=== PATIENT | female | born 1935 | race Caucasian/White ===

== ENCOUNTER 2020-08-14 10:40 | Inpatient (IN) ==
[2020-08-16] MEDS: DICLOFENAC EPOLAMINE TP SCH ×2 (01:41→11:52)
[2020-08-16 05:08] LABS: Basophils % 0.4 %; Eosinophils # 0.3 K/mcL (0.0-0.6); Eosinophils % 2.8 %; Hematocrit 34.7 % (35.3-44.9); Hemoglobin 11.5 g/dL (11.5-15.4); Immature Granulocytes % 0.6 % (0-4); Lymphocytes % 21.8 %; Mean Corpuscular HGB Conc 33.1 g/dL (31.6-35.5); Mean Corpuscular Volume 90.6 fL (83.0-100.0); Mean Platelet Volume 8.6 fL (9.4-12.4); Monocytes # 0.8 K/mcL (0.0-1.3); Monocytes % 8.5 %; Neutrophils # 5.9 K/mcL (1.6-8.9); Platelet Count 317 K/mcL (140-400); Red Blood Count 3.83 M/mcL (3.82-4.97); Red Cell Distribution Width 13.6 % (11.5-14.5); Segmented Neutrophils % 65.9 %; White Blood Count 8.9 K/mcL (4.3-11.1)
[2020-08-16 05:22] LABS: BUN/Creatinine Ratio 28 (6-26); Blood Urea Nitrogen 18 mg/dL (8-23); Calcium 8.6 mg/dL (8.6-10.3); Carbon Dioxide 28 mEq/L (23-29); Chloride 99 mEq/L (98-107); Glucose 117 mg/dL (70-105); Osmolality,Calculated 281 (280-300); Potassium 3.7 mEq/L (3.5-5.1); Sodium 134 mEq/L (136-145); eGFR For African Americans > 60 (> 60); eGFR For Non-African Americans > 60 (> 60)
[2020-08-16] MEDS: Cholecalciferol (D-3) 1,000 UNIT (25MCG) TABLET PO SCH (08:06)
[2020-08-16] MEDS: Aspirin Enteric Coated 81 MG Tablet PO SCH (08:06)
[2020-08-16] MEDS: hydroCHLOROthiazide 25 MG TABLET PO SCH (08:07)
[2020-08-16] MEDS: Sennosides/Docusate Sodium TABLET PO SCH ×2 (08:07→20:57)
[2020-08-16] MEDS: amLODIPine 5 MG TABLET PO SCH (08:07)
[2020-08-16] MEDS: *HR* Enoxaparin 40 MG/0.4 ML SYRINGE SQ SCH (08:08)
[2020-08-17] MEDS: DICLOFENAC EPOLAMINE TP SCH ×3 (01:26→19:51)
[2020-08-17] MEDS: amLODIPine 5 MG TABLET PO SCH (08:02)
[2020-08-17] MEDS: Cholecalciferol (D-3) 1,000 UNIT (25MCG) TABLET PO SCH (08:02)
[2020-08-17] MEDS: Sennosides/Docusate Sodium TABLET PO SCH ×2 (08:02→19:54)
[2020-08-17] MEDS: Aspirin Enteric Coated 81 MG Tablet PO SCH (08:03)
[2020-08-17] MEDS: hydroCHLOROthiazide 25 MG TABLET PO SCH (08:03)
[2020-08-17] MEDS: *HR* Enoxaparin 40 MG/0.4 ML SYRINGE SQ SCH (09:46)
[2020-08-18] MEDS: Cholecalciferol (D-3) 1,000 UNIT (25MCG) TABLET PO SCH (07:21)
[2020-08-18] MEDS: amLODIPine 5 MG TABLET PO SCH (07:21)
[2020-08-18] MEDS: Aspirin Enteric Coated 81 MG Tablet PO SCH (07:21)
[2020-08-18] MEDS: hydroCHLOROthiazide 25 MG TABLET PO SCH (07:22)
[2020-08-18] MEDS: Sennosides/Docusate Sodium TABLET PO SCH ×2 (07:24→20:08)
[2020-08-18] MEDS: *HR* Enoxaparin 40 MG/0.4 ML SYRINGE SQ SCH (07:24)
[2020-08-18] MEDS: DICLOFENAC EPOLAMINE TP SCH ×2 (12:26→20:09)
[2020-08-18] MEDS: *HR* HYDROcodone/Acet 5/325 mg TABLET PO PRN ×3 (12:27→20:09)
[2020-08-18] MEDS: tiZANidine 4 MG TABLET PO PRN ×2 (15:13→20:10)
[2020-08-19] MEDS: tiZANidine 4 MG TABLET PO PRN ×2 (06:23→21:21)
[2020-08-19] MEDS: *HR* HYDROcodone/Acet 5/325 mg TABLET PO PRN ×2 (06:23→21:21)
[2020-08-19] MEDS: Sennosides/Docusate Sodium TABLET PO SCH ×2 (09:43→21:20)
[2020-08-19] MEDS: amLODIPine 5 MG TABLET PO SCH (09:43)
[2020-08-19] MEDS: Cholecalciferol (D-3) 1,000 UNIT (25MCG) TABLET PO SCH (09:43)
[2020-08-19] MEDS: Aspirin Enteric Coated 81 MG Tablet PO SCH (09:44)
[2020-08-19] MEDS: *HR* Enoxaparin 40 MG/0.4 ML SYRINGE SQ SCH (09:45)
[2020-08-19] MEDS: DICLOFENAC EPOLAMINE TP SCH ×2 (14:11→21:22)
[2020-08-20] MEDS: tiZANidine 4 MG TABLET PO PRN ×2 (05:51→20:48)
[2020-08-20] MEDS: *HR* HYDROcodone/Acet 5/325 mg TABLET PO PRN ×3 (05:52→20:49)
[2020-08-20] MEDS: Cholecalciferol (D-3) 1,000 UNIT (25MCG) TABLET PO SCH (08:50)
[2020-08-20] MEDS: Sennosides/Docusate Sodium TABLET PO SCH ×2 (08:50→20:48)
[2020-08-20] MEDS: Aspirin Enteric Coated 81 MG Tablet PO SCH (08:51)
[2020-08-20] MEDS: amLODIPine 5 MG TABLET PO SCH (08:51)
[2020-08-20] MEDS: *HR* Enoxaparin 40 MG/0.4 ML SYRINGE SQ SCH (08:52)
[2020-08-20] MEDS: DICLOFENAC EPOLAMINE TP SCH ×2 (08:53→20:51)
[2020-08-21] MEDS: tiZANidine 4 MG TABLET PO PRN ×2 (05:08→20:41)
[2020-08-21] MEDS: *HR* HYDROcodone/Acet 5/325 mg TABLET PO PRN ×3 (05:08→20:40)
[2020-08-21] MEDS: Aspirin Enteric Coated 81 MG Tablet PO SCH (09:07)
[2020-08-21] MEDS: Cholecalciferol (D-3) 1,000 UNIT (25MCG) TABLET PO SCH (09:08)
[2020-08-21] MEDS: Sennosides/Docusate Sodium TABLET PO SCH ×2 (09:08→20:41)
[2020-08-21] MEDS: *HR* Enoxaparin 40 MG/0.4 ML SYRINGE SQ SCH (09:08)
[2020-08-21] MEDS: amLODIPine 5 MG TABLET PO SCH (09:08)
[2020-08-21] MEDS: DICLOFENAC EPOLAMINE TP SCH ×2 (09:09→22:19)
[2020-08-21] MEDS: polyethylene glycoL 3350 17 GM POWD.PACK PO PRN (16:03)
[2020-08-22] MEDS: Cholecalciferol (D-3) 1,000 UNIT (25MCG) TABLET PO SCH (09:01)
[2020-08-22] MEDS: *HR* Enoxaparin 40 MG/0.4 ML SYRINGE SQ SCH (09:01)
[2020-08-22] MEDS: Sennosides/Docusate Sodium TABLET PO SCH ×2 (09:02→21:04)
[2020-08-22] MEDS: Aspirin Enteric Coated 81 MG Tablet PO SCH (09:02)
[2020-08-22] MEDS: amLODIPine 5 MG TABLET PO SCH (09:02)
[2020-08-22] MEDS: *HR* HYDROcodone/Acet 5/325 mg TABLET PO PRN ×2 (09:02→23:55)
[2020-08-22] MEDS: DICLOFENAC EPOLAMINE TP SCH (10:31)
[2020-08-22] MEDS: tiZANidine 4 MG TABLET PO PRN (23:56)
[2020-08-23] MEDS: *HR* HYDROcodone/Acet 5/325 mg TABLET PO PRN ×2 (08:26→14:39)
[2020-08-23] MEDS: amLODIPine 5 MG TABLET PO SCH (08:26)
[2020-08-23] MEDS: Cholecalciferol (D-3) 1,000 UNIT (25MCG) TABLET PO SCH (08:27)
[2020-08-23] MEDS: Sennosides/Docusate Sodium TABLET PO SCH ×2 (08:27→19:44)
[2020-08-23] MEDS: Aspirin Enteric Coated 81 MG Tablet PO SCH (08:27)
[2020-08-23] MEDS: *HR* Enoxaparin 40 MG/0.4 ML SYRINGE SQ SCH (08:28)
[2020-08-24] MEDS: *HR* HYDROcodone/Acet 5/325 mg TABLET PO PRN (04:26)
[2020-08-24 04:34] LABS: Hemoglobin 10.7 g/dL (11.5-15.4); Mean Corpuscular HGB Conc 32.4 g/dL (31.6-35.5); Mean Corpuscular Hemoglobin 29.9 pg (28.0-33.3); Mean Corpuscular Volume 92.2 fL (83.0-100.0); Mean Platelet Volume 8.6 fL (9.4-12.4); Platelet Count 343 K/mcL (140-400); Red Blood Count 3.58 M/mcL (3.82-4.97); Red Cell Distribution Width 13.9 % (11.5-14.5); White Blood Count 8.5 K/mcL (4.3-11.1)
[2020-08-24 04:52] LABS: Alanine Aminotransferase 13 Units/L (7-52); Albumin 3.5 g/dL (3.5-5.7); Albumin/Globulin Ratio 1.3 (1.1-2.2); Alkaline Phosphatase 152 Units/L (34-104); Aspartate Amino Transferase 13 Units/L (13-39); BUN/Creatinine Ratio 26 (6-26); Bilirubin,Total 0.4 mg/dL (0.3-1.0); Blood Urea Nitrogen 16 mg/dL (8-23); Calcium 8.9 mg/dL (8.6-10.3); Carbon Dioxide 31 mEq/L (23-29); Chloride 99 mEq/L (98-107); Globulin 2.8 g/dL (2.4-3.5); Glucose 111 mg/dL (70-105); Magnesium 1.9 mg/dL (1.6-2.6); Osmolality,Calculated 284 (280-300); Potassium 4.4 mEq/L (3.5-5.1); Sodium 136 mEq/L (136-145); Total Protein 6.3 g/dL (6.4-8.9); eGFR For African Americans > 60 (> 60); eGFR For Non-African Americans > 60 (> 60)
[2020-08-24] MEDS: Cholecalciferol (D-3) 1,000 UNIT (25MCG) TABLET PO SCH (07:40)
[2020-08-24] MEDS: Aspirin Enteric Coated 81 MG Tablet PO SCH (07:40)
[2020-08-24] MEDS: tiZANidine 4 MG TABLET PO PRN (07:40)
[2020-08-24] MEDS: Sennosides/Docusate Sodium TABLET PO SCH ×2 (07:40→16:56)
[2020-08-24] MEDS: polyethylene glycoL 3350 17 GM POWD.PACK PO PRN (07:41)
[2020-08-24] MEDS: *HR* Enoxaparin 40 MG/0.4 ML SYRINGE SQ SCH (07:41)
[2020-08-24] MEDS: amLODIPine 5 MG TABLET PO SCH (07:41)
[2020-08-24] MEDS ORDERED: 0.9 % Sodium Chloride 1,000 ML IVC ONE (09:44)
[2020-08-24] MEDS ORDERED: 0.9 % Sodium Chloride 1,000 ML IVC SCH (11:15)
[2020-08-24 21:08] LABS: Bilirubin,Urine Negative (Negative); Blood,Urine Trace-intact (Negative); Clarity,Urine Slightly Cloudy (Clear); Glucose,Urine (UA) Normal (Normal); Ketones,Urine Negative (Negative); Leukocyte Esterase,Urine Trace (Negative); Nitrite,Urine Negative (Negative); Protein,Urine Negative (Neg-Trace); Specific Gravity,Urine 1.015 (1.010-1.025); Urobilinogen,Urine Normal (Normal)
[2020-08-24 21:09] LABS: Color,Urine Yellow (Yellow)
[2020-08-24 21:11] LABS: Amorphous Sediment,Urine Few per hpf (None-Few); Bacteria,Urine Few per hpf (None-Few); RBC,Urine 0-3 per hpf (0-3); Squamous Epithelial Cell,Urine Few per hpf (None-Few); WBC,Urine 0-3 per hpf (0-3)
[2020-08-25] MEDS: *HR* HYDROcodone/Acet 5/325 mg TABLET PO PRN ×2 (06:31→12:53)
[2020-08-25] MEDS: *HR* Enoxaparin 40 MG/0.4 ML SYRINGE SQ SCH (07:45)
[2020-08-25] MEDS: Sennosides/Docusate Sodium TABLET PO SCH ×2 (07:46→20:36)
[2020-08-25] MEDS: Aspirin Enteric Coated 81 MG Tablet PO SCH (07:46)
[2020-08-25] MEDS: Cholecalciferol (D-3) 1,000 UNIT (25MCG) TABLET PO SCH (07:46)
[2020-08-25] MEDS ORDERED: amLODIPine 5 MG TABLET PO SCH (09:00)
[2020-08-25] MEDS: amLODIPine 5 MG TABLET PO SCH (12:53)
[2020-08-26] MEDS: Cholecalciferol (D-3) 1,000 UNIT (25MCG) TABLET PO SCH (09:17)
[2020-08-26] MEDS: Aspirin Enteric Coated 81 MG Tablet PO SCH (09:17)
[2020-08-26] MEDS: *HR* Enoxaparin 40 MG/0.4 ML SYRINGE SQ SCH (09:17)
[2020-08-26] MEDS: amLODIPine 5 MG TABLET PO SCH (09:18)
[2020-08-26] MEDS: Sennosides/Docusate Sodium TABLET PO SCH ×2 (09:19→22:44)
[2020-08-27] MEDS: Cholecalciferol (D-3) 1,000 UNIT (25MCG) TABLET PO SCH (09:26)
[2020-08-27] MEDS: Sennosides/Docusate Sodium TABLET PO SCH ×2 (09:26→20:38)
[2020-08-27] MEDS: *HR* HYDROcodone/Acet 5/325 mg TABLET PO PRN (09:26)
[2020-08-27] MEDS: Aspirin Enteric Coated 81 MG Tablet PO SCH (09:26)
[2020-08-27] MEDS: amLODIPine 5 MG TABLET PO SCH (09:27)
[2020-08-27] MEDS: *HR* Enoxaparin 40 MG/0.4 ML SYRINGE SQ SCH (09:27)
[2020-08-28] MEDS: *HR* Enoxaparin 40 MG/0.4 ML SYRINGE SQ SCH (08:25)
[2020-08-28] MEDS: *HR* HYDROcodone/Acet 5/325 mg TABLET PO PRN (08:25)
[2020-08-28] MEDS: amLODIPine 5 MG TABLET PO SCH (08:26)
[2020-08-28] MEDS: Sennosides/Docusate Sodium TABLET PO SCH ×2 (08:26→20:26)
[2020-08-28] MEDS: Cholecalciferol (D-3) 1,000 UNIT (25MCG) TABLET PO SCH (08:26)
[2020-08-28] MEDS: Aspirin Enteric Coated 81 MG Tablet PO SCH (08:26)
[2020-08-29] MEDS: Cholecalciferol (D-3) 1,000 UNIT (25MCG) TABLET PO SCH (08:02)
[2020-08-29] MEDS: Sennosides/Docusate Sodium TABLET PO SCH ×2 (08:02→20:32)
[2020-08-29] MEDS: Aspirin Enteric Coated 81 MG Tablet PO SCH (08:03)
[2020-08-29] MEDS: *HR* Enoxaparin 40 MG/0.4 ML SYRINGE SQ SCH (08:03)
[2020-08-29] MEDS: amLODIPine 5 MG TABLET PO SCH (08:03)
[2020-08-29] MEDS: *HR* HYDROcodone/Acet 5/325 mg TABLET PO PRN ×2 (08:03→20:32)
[2020-08-30] MEDS: *HR* HYDROcodone/Acet 5/325 mg TABLET PO PRN ×2 (05:36→11:28)
[2020-08-30] MEDS: *HR* Enoxaparin 40 MG/0.4 ML SYRINGE SQ SCH (08:50)
[2020-08-30] MEDS: amLODIPine 5 MG TABLET PO SCH (08:50)
[2020-08-30] MEDS: Sennosides/Docusate Sodium TABLET PO SCH ×2 (08:50→20:43)
[2020-08-30] MEDS: Aspirin Enteric Coated 81 MG Tablet PO SCH (08:50)
[2020-08-30] MEDS: Cholecalciferol (D-3) 1,000 UNIT (25MCG) TABLET PO SCH (08:50)
[2020-08-31 05:00] LABS: Basophils % 0.6 %; Eosinophils # 0.3 K/mcL (0.0-0.6); Eosinophils % 6.1 %; Hematocrit 30.5 % (35.3-44.9); Hemoglobin 9.7 g/dL (11.5-15.4); Immature Granulocytes % 0.2 % (0-4); Lymphocytes # 1.5 K/mcL (0.6-4.6); Lymphocytes % 29.9 %; Mean Corpuscular HGB Conc 31.8 g/dL (31.6-35.5); Mean Corpuscular Hemoglobin 29.7 pg (28.0-33.3); Mean Corpuscular Volume 93.3 fL (83.0-100.0); Monocytes # 0.5 K/mcL (0.0-1.3); Monocytes % 9.1 %; Neutrophils # 2.7 K/mcL (1.6-8.9); Platelet Count 229 K/mcL (140-400); Red Blood Count 3.27 M/mcL (3.82-4.97); Segmented Neutrophils % 54.1 %; White Blood Count 5.1 K/mcL (4.3-11.1)
[2020-08-31] MEDS: *HR* HYDROcodone/Acet 5/325 mg TABLET PO PRN ×3 (05:01→20:01)
[2020-08-31 05:14] LABS: BUN/Creatinine Ratio 29 (6-26); Blood Urea Nitrogen 19 mg/dL (8-23); Calcium 8.7 mg/dL (8.6-10.3); Carbon Dioxide 31 mEq/L (23-29); Chloride 101 mEq/L (98-107); Glucose 109 mg/dL (70-105); Osmolality,Calculated 289 (280-300); Potassium 4.4 mEq/L (3.5-5.1); Sodium 138 mEq/L (136-145); eGFR For African Americans > 60 (> 60); eGFR For Non-African Americans > 60 (> 60)
[2020-08-31] MEDS: amLODIPine 5 MG TABLET PO SCH (07:39)
[2020-08-31] MEDS: *HR* Enoxaparin 40 MG/0.4 ML SYRINGE SQ SCH (07:39)
[2020-08-31] MEDS: Cholecalciferol (D-3) 1,000 UNIT (25MCG) TABLET PO SCH (07:39)
[2020-08-31] MEDS: Sennosides/Docusate Sodium TABLET PO SCH ×2 (07:40→20:02)
[2020-08-31] MEDS: Aspirin Enteric Coated 81 MG Tablet PO SCH (07:40)
[2020-09-01] MEDS: *HR* Enoxaparin 40 MG/0.4 ML SYRINGE SQ SCH (07:26)
[2020-09-01] MEDS: Sennosides/Docusate Sodium TABLET PO SCH ×2 (07:26→20:34)
[2020-09-01] MEDS: amLODIPine 5 MG TABLET PO SCH (07:27)
[2020-09-01] MEDS: Aspirin Enteric Coated 81 MG Tablet PO SCH (07:27)
[2020-09-01] MEDS: Cholecalciferol (D-3) 1,000 UNIT (25MCG) TABLET PO SCH (07:27)
[2020-09-01] MEDS: *HR* HYDROcodone/Acet 5/325 mg TABLET PO PRN (07:32)
[2020-09-02] MEDS: Sennosides/Docusate Sodium TABLET PO SCH ×2 (09:28→22:04)
[2020-09-02] MEDS: Cholecalciferol (D-3) 1,000 UNIT (25MCG) TABLET PO SCH (09:28)
[2020-09-02] MEDS: *HR* Enoxaparin 40 MG/0.4 ML SYRINGE SQ SCH (09:28)
[2020-09-02] MEDS: amLODIPine 5 MG TABLET PO SCH (09:29)
[2020-09-02] MEDS: Aspirin Enteric Coated 81 MG Tablet PO SCH (09:29)
[2020-09-03 07:20] VITALS: BP 156/74
[2020-09-03] MEDS: *HR* Enoxaparin 40 MG/0.4 ML SYRINGE SQ SCH (08:09)
[2020-09-03] MEDS: Sennosides/Docusate Sodium TABLET PO SCH (08:10)
[2020-09-03] MEDS: amLODIPine 5 MG TABLET PO SCH (08:10)
[2020-09-03] MEDS: Aspirin Enteric Coated 81 MG Tablet PO SCH (08:10)
[2020-09-03] MEDS: Cholecalciferol (D-3) 1,000 UNIT (25MCG) TABLET PO SCH (08:10)
== END 2020-09-03 14:16 | disposition home health service (06) | DRG 560 ==
LOC: INPGRE 08-15 21:30 → UNDODISIN 09-02 20:00
PROVIDERS: ADMIT Family Medicine; ATTEND Family Medicine